=== PATIENT | male | born 1975 | race Two or more races ===

== ENCOUNTER 2016-10-17 21:28 | Emergency (ER) | payer MEDICAID | END 2016-10-17 22:44 | disposition home or self-care (01) | LOC: ED 21:28 | DX: J06.9 Acute upper respiratory infection, unspecified (principal); J02.9 Acute pharyngitis, unspecified; E11.9 Type 2 diabetes mellitus without complications; Z79.84 Long term (current) use of oral hypoglycemic drugs ==

== ENCOUNTER 2016-10-29 13:16 | Emergency (ER) | payer MEDICAID | END 2016-10-29 14:17 | disposition home or self-care (01) | LOC: ED 13:16 | DX: K57.92 Diverticulitis of intestine, part unspecified, without perforation or abscess without bleeding (principal); E11.9 Type 2 diabetes mellitus without complications; Z79.84 Long term (current) use of oral hypoglycemic drugs ==